=== PATIENT | female | born 1945 | race African-American/Black ===

== ENCOUNTER 2017-09-01 20:03 | Emergency (ER) | payer OTHER ==
[~2017-09-01] VITALS: Ht 160 cm; Wt 57.1 kg
--- NOTE | ~2017-09-01 | EKG ---
[place] [address] [email or web address] [place] [address] ELECTROCARDIOGRAM REPORT Name: MIRACLEPETERSON MCCARTHY Room #: [facility]P [facility] [id number] Admission: 09/01/17 Attend Phys: Discharge: 09/02/17 Date of : 41 Report #: [id number] THIS REPORT FOR: //name// [facility] ED Test Date: 2017-09-01 Test Time: 21:15:18 Pat Name: PETERSON RAUSCH Department: Room: Gender: F Business Department Chair: JENNIFER : 1945 Requested By: Tammy Madrid Order Number: [id number] MD: Robert Dasilva Measurements Intervals [place] Rate: 79 P: 61 ND: 222 QRS: 6 QRSD: 81 T: -31 QT: 492 QTc: 565 Interpretive Statements Sinus rhythm Prolonged ND interval Borderline T wave abnormalities Prolonged QT interval No previous ECG available for comparison Electronically Signed On 09-03-2017 8:33:36 CDT by Robert Dasilva [email or web address] <ELECTRONICALLY SIGNED> By: Robert Dasilva MD, [facility] 09/03/17 [id number] Robert Dasilva MD, FACC /EPI
[~2017-09-01 20:03] MED LIST: APAP650 PO; CLEOCIN HCL150 MG PO; EXELON1 EACH TOP; FLONASE 0.05%50 MCG NASAL; LIPITOR 20 MG T20 M1 PO; MAXZIDE-25 MG1 EACH PO; MIRTAZAPINE7.5 MG PO; NORCO 5-325 TA1 EACH PO; PHENERGAN25 MG RE; PROMS25 WY RECTAL; ZOFRAN4 MG PO
[2017-09-01 22:50] LABS: ABSOLUTE NEUTROPHILS 11.5 thou/uL (1.4-8.2); BASOPHILS 0.5 % (0.0-2.0); HEMOGLOBIN 12.6 gm/dL (12.0-15.0); MCH 21.9 pg (26.0-34.0); MCHC 33.2 g/dL (28.0-37.0); MONOCYTES 2.9 % (1.0-8.0); PLATELET COUNT 348 thou/uL (150-400); POLYS 87.6 % (36.0-66.0); RBC 5.75 mil/uL (4.20-5.00); RDW 16.7 % (10.5-14.5); WBC 13.1 thou/uL (4.0-11.0)
[2017-09-01 22:58] LABS: ANION GAP 17 mmol/L (7-16); BUN 17 mg/dL (7-18); CALCIUM 9.7 mg/dL (8.5-10.1); CHLORIDE 102 mmol/L (98-107); CO2 23 mmol/L (21-32); CREATININE 1.2 mg/dL (0.6-1.0); GLUCOSE 179 mg/dL (74-106); POTASSIUM 3.4 mmol/L (3.5-5.1); SODIUM 142 mmol/L (136-145)
[2017-09-01 23:08] LABS: ALBUMIN 3.9 g/dL (3.4-5.0); LIPASE 186 U/L (73-393); SGOT 22 U/L (15-37); SGPT 20 U/L (30-65); TOTAL BILIRUBIN 0.4 mg/dL (<0.1-1.0); TOTAL PROTEIN 8.2 g/dL (6.4-8.2); TROPONIN-I <0.06 ng/mL (<0.06)
[2017-09-01 23:59] LABS: ANISOCYTOSIS 1+; HYPOCHROMASIA 2+; MICROCYTES 3+; POLYCHROMASIA 1+
[2017-09-02 00:05] LABS: URINE BILIRUBIN NEGATIVE (Negative); URINE BLOOD NEGATIVE (Negative); URINE CLARITY CLEAR; URINE COLOR YELLOW; URINE GLUCOSE-RANDOM* NEGATIVE (Negative); URINE KETONES 2+ (Negative); URINE LEUKOCYTES-REFLEX NEGATIVE (Negative); URINE NITRITE-REFLEX NEGATIVE (Negative); URINE PROTEIN (DIPSTICK) TRACE (Negative); URINE UROBILINOGEN 0.2 E.U./dl (0.2-1.0)
[2017-09-02] MEDS ORDERED: PROMS25 WY RECTAL (01:07)
[2017-09-02] MEDS ORDERED: ZOFRAN ODT4 MG DISSOLVE (01:07)
[2017-09-02] MEDS ORDERED: KEFLEX500 M1 PO (04:04)
[2017-09-02] MEDS ORDERED: ATIVAN0.5 MG PO (04:06)
[2017-09-02] MEDS ORDERED: HYDROCHLOROTHIA25 M2 PO (04:06)
[2017-09-02] MEDS ORDERED: NIACIN SR 250250 MG PO (04:08)
== END 2017-09-02 01:50 | disposition home or self-care (01) ==
LOC: ER 20:03
PROVIDERS: Physician Assistant
DX: R19.7 Diarrhea, unspecified (principal); R11.2 Nausea with vomiting, unspecified; F41.9 Anxiety disorder, unspecified; F03.90 Unspecified dementia, unspecified severity, without behavioral disturbance, psychotic disturbance, mood disturbance, and anxiety; Z88.0 Allergy status to penicillin; Z88.1 Allergy status to other antibiotic agents

== ENCOUNTER 2017-12-31 02:53 | Emergency (ER) | payer OTHER ==
[~2017-12-31] VITALS: Ht 157.5 cm; Wt 59.0 kg
[~2017-12-31 02:53] MED LIST changes: +ATIVAN0.5 MG PO; +HYDROCHLOROTHIA25 M2 PO; +KEFLEX500 M1 PO; +NIACIN SR 250250 MG PO; +ZOFRAN ODT4 MG DISSOLVE
[2017-12-31 04:47] LABS: BASOPHILS 0.7 % (0.0-2.0); EOSINOPHILS 0.1 % (0.0-3.0); HEMATOCRIT 35.5 % (37.0-47.0); HEMOGLOBIN 11.4 gm/dL (12.0-15.0); LYMPHOCYTES 9.7 % (24.0-44.0); MCH 21.8 pg (26.0-34.0); MCHC 32.2 g/dL (28.0-37.0); MCV 67.6 fL (80.0-100.0); MONOCYTES 3.1 % (1.0-8.0); PLATELET COUNT 306 thou/uL (150-400); POLYS 86.4 % (36.0-66.0); RBC 5.25 mil/uL (4.20-5.00); RDW 15.5 % (10.5-14.5); WBC 8.1 thou/uL (4.0-11.0)
[2017-12-31 04:56] LABS: CALCIUM 8.1 mg/dL (8.5-10.1); CREATININE 0.9 mg/dL (0.6-1.0); POTASSIUM 3.1 mmol/L (3.5-5.1)
[2017-12-31 05:02] LABS: ALBUMIN 3.1 g/dL (3.4-5.0); DIRECT BILIRUBIN 0.1 mg/dL (<0.1-0.3); TOTAL BILIRUBIN 0.3 mg/dL (<0.1-1.0); TOTAL PROTEIN 6.8 g/dL (6.4-8.2)
[2017-12-31 05:14] LABS: URINE BILIRUBIN NEGATIVE (Negative); URINE BLOOD NEGATIVE (Negative); URINE CLARITY CLEAR; URINE COLOR YELLOW; URINE GLUCOSE-RANDOM* NEGATIVE (Negative); URINE KETONES TRACE (Negative); URINE LEUKOCYTES-REFLEX NEGATIVE (Negative); URINE NITRITE-REFLEX NEGATIVE (Negative); URINE PROTEIN (DIPSTICK) NEGATIVE (Negative); URINE SPECIFIC GRAVITY 1.015 (1.005-1.035); URINE UROBILINOGEN 0.2 E.U./dl (0.2-1.0)
[2017-12-31 05:48] LABS: HYPOCHROMASIA 2+; MICROCYTES 2+
[2017-12-31] MEDS ORDERED: BENTYL 20 MG TA20 M1 PO (06:52)
[2017-12-31] MEDS ORDERED: ZOFRAN ODT4 MG PO (06:52)
[2017-12-31 07:15] VITALS: BP 146/80
== END 2017-12-31 07:15 | disposition home or self-care (01) ==
LOC: ER 02:53
PROVIDERS: Emergency Medicine
DX: R11.10 Vomiting, unspecified (principal); R19.7 Diarrhea, unspecified; E87.6 Hypokalemia; F41.9 Anxiety disorder, unspecified; Z87.891 Personal history of nicotine dependence; Z88.1 Allergy status to other antibiotic agents; Z88.0 Allergy status to penicillin; Z88.8 Allergy status to other drugs, medicaments and biological substances; G30.9 Alzheimer's disease, unspecified; F02.80 Dementia in other diseases classified elsewhere, unspecified severity, without behavioral disturbance, psychotic disturbance, mood disturbance, and anxiety

== ENCOUNTER 2019-03-15 21:03 | Emergency (ER) | payer OTHER ==
[~2019-03-15] VITALS: Ht 154.9 cm; Wt 60.3 kg
[~2019-03-15 21:03] MED LIST changes: +BENTYL 20 MG TA20 M1 PO; +ZOFRAN ODT4 MG PO
[2019-03-16 01:30] VITALS: BP 176/93
== END 2019-03-16 01:30 | disposition home or self-care (01) ==
LOC: ER 21:03
DX: S01.111A Laceration without foreign body of right eyelid and periocular area, initial encounter (principal); F03.90 Unspecified dementia, unspecified severity, without behavioral disturbance, psychotic disturbance, mood disturbance, and anxiety; F41.9 Anxiety disorder, unspecified; Z87.891 Personal history of nicotine dependence; Z88.1 Allergy status to other antibiotic agents; Z88.0 Allergy status to penicillin; Z88.8 Allergy status to other drugs, medicaments and biological substances; W19.XXXA Unspecified fall, initial encounter; Y93.89 Activity, other specified; Y92.89 Other specified places as the place of occurrence of the external cause; Y99.8 Other external cause status